=== PATIENT | male | born 1985 | race Two or more races ===

== ENCOUNTER 2019-04-20 06:10 | Inpatient (IN) | payer OTHER ==
[2019-04-16 10:31] VITALS: BMI 38.2
[2019-04-20] MEDS ORDERED: MIDAZOLAM HCL 2 MG/2 ML SINGLE DOSE VIAL ONE ×2 (07:18→07:27)
[2019-04-20] MEDS ORDERED: DEXAMETHASONE SOD PHOSPHATE/PF 10 MG/ML SDV ONE (07:18)
[2019-04-20] MEDS ORDERED: BUPIVACAINE HCL/PF 0.5% (5 MG/ML) 30 ML VIAL IJ ONE (07:19)
[2019-04-20] MEDS ORDERED: SUCCINYLCHOLINE CHLORIDE 200 MG/10 ML SYRINGE ONE (07:25)
[2019-04-20] MEDS ORDERED: fentaNYL CITRATE 250 MCG/5 ML VIAL ONE (07:25)
[2019-04-20] MEDS ORDERED: ROCURONIUM BROMIDE 50 MG/5 ML SYRINGE ONE (07:25)
[2019-04-20] MEDS ORDERED: PROPOFOL 20 ML ONE ×2 (07:25)
--- NOTE | 2019-04-20 07:29 | HP ---
Admitting History and Physical - Admission Chief Complaint: Morbid obesity History Source: Patient Limitations to Obtaining History: No Limitations - Past Medical History Pulmonary: Yes: Sleep Apnea - Past Surgical History Past Surgical History: Yes: Appendectomy Additional Past Surgical History: Circumcision Left thigh mass removal - Smoking History Smoking history: Never smoked Have you smoked in the past 12 months: No - Alcohol/Substance Use Hx Alcohol Use: No - Social History ADL: Independent Home Medications - Allergies Allergies/Adverse Reactions: Allergies Allergy/AdvReac Type Severity Reaction Status Date / Time No Known Allergies Allergy Verified 04/16/19 10:15 - Home Medications Home Medications: Ambulatory Orders Docusate Sodium [Colace -] 100 mg PO TID #90 capsule 04/20/19 Famotidine [Pepcid] 20 mg PO BID #60 tablet 04/20/19 Ondansetron [Zofran -] 8 mg PO TID #30 tablet 04/20/19 Oxycodone HCl/Acetaminophen [Percocet 5-325 mg Tablet] 1 - 2 tab PO Q6H #28 tab MDD 4 04/20/19 Family Medical History Family History: Unremarkable Review of Systems - Review of Systems Constitutional: denies: Chills, Fever Neck: reports: No Symptoms Cardiovascular: reports: No Symptoms Respiratory: reports: No Symptoms Gastrointestinal: reports: No Symptoms Neurological: reports: No Symptoms Pain Intensity: 0 Physical Examination Vital Signs: Vital Signs Temperature 97.6 F 04/20/19 06:21 Pulse Rate 80 04/20/19 06:21 Respiratory Rate 18 04/20/19 06:21 Blood Pressure 132/80 04/20/19 06:21 O2 Sat by Pulse Oximetry (%) Constitutional: Yes: Calm Neck: Yes: WNL Cardiovascular: Yes: WNL Respiratory: Yes: Regular Gastrointestinal: Yes: Soft, Abdomen, Obese Neurological: Yes: Alert, Oriented Problem List - Problems (1) Morbid obesity due to excess calories Problems reviewed: Yes Code(s): E66.01 - MORBID (SEVERE) OBESITY DUE TO EXCESS CALORIES (2) Sleep apnea Problems reviewed: Yes Code(s): G47.30 - SLEEP APNEA, UNSPECIFIED Qualifiers: Sleep apnea type: unspecified type Qualified Code(s): G47.30 - Sleep apnea , unspecified (3) BMI 38.0-38.9,adult Problems reviewed: Yes Code(s): Z68.38 - BODY MASS INDEX (BMI) 38.0-38.9, ADULT Assessment/Plan Laparoscopic possible open vertical sleeve gastrectomy possible liver biopsy, upper endoscopy
[2019-04-20] MEDS ORDERED: BUPIVACAINE HCL 0.25% 125 MG/50 ML VIAL ONE (07:38)
[2019-04-20] MEDS ORDERED: NEOSTIGMINE METHYLSULFATE 0.5 MG/ML - 10 ML MDV ONE (09:07)
[2019-04-20] MEDS ORDERED: BUPIVACAINE HCL/PF 0.25% (2.5MG/ML) 10 ML VIAL IJ ONE (09:09)
[2019-04-20] MEDS ORDERED: SODIUM CHLORIDE 1,000 ML IV SCH (09:15)
[2019-04-20] MEDS ORDERED: HYDROmorphone HCl 2 MG/ML VIAL IVPB PRN (09:15)
--- NOTE | 2019-04-20 09:17 | OP ---
Operative Note - Note: Operative Date: 04/20/19 Pre-Operative Diagnosis: Morbid obesity. Obstructive sleep apnea. BMi 38 Operation: Diagnositc laparoscopy. Laparoscopic vertical sleeve gastrectomy. Laparoscopic wedge liver biopsy Post-Operative Diagnosis: Same as Pre-op (as well as hepatomegaly) Surgeon: Jase Sheppard Md Do Resident Urgent Care: Dada Ruff Anesthesia: General Specimens Removed: Greater curvature of stomach. Liver biopsy Estimated Blood Loss (mls): 30 Drains & Tubes with Location: 36 fr bougie Operative Report Dictated: Yes
[2019-04-20] MEDS ORDERED: FAMOTIDINE 20 MG PREMIXED IVPB IVPB ONE (09:30)
[2019-04-20] MEDS: ACETAMINOPHEN 1000 MG/100 ML VIAL (NON FORMULARY) IVPB SCH ×3 (09:45→20:53)
[2019-04-20 09:49] LABS: HEMATOCRIT 40.8 % (35.4-49); HEMOGLOBIN 13.8 GM/dl (11.7-16.9); MCH 29.8 pg (25.7-33.7); MCHC 33.8 g/dl (32.0-35.9); MEAN CELL VOLUME 88.4 fl (80-96); MEAN PLT VOLUME 8.6 fl (7.5-11.1); PLATELET COUNT 239 K/MM3 (134-434); RBC 4.62 M/mm3 (4.00-5.60); RDW 11.8 % (11.9-15.9); WHITE BLOOD COUNT 4.4 K/mm3 (4.0-10.8)
[2019-04-20] MEDS: METOCLOPRAMIDE HCL INJECTION 10 MG/2 ML VIAL IVPUSH SCH ×4 (09:50→20:53)
[2019-04-20] MEDS: ONDANSETRON 4 MG/2 ML VIAL IVPUSH SCH ×4 (10:00→20:53)
[2019-04-20 10:04] LABS: ALBUMIN 3.6 g/dl (3.4-5.0); BILIRUBIN,TOTAL 1.3 mg/dl (0.2-1); CALCIUM 8.3 mg/dl (8.5-10); CREATININE 0.9 mg/dl (0.55-1.3); POTASSIUM 3.9 mmol/L (3.5-5.1); TOT PROT 6.7 g/dl (6.4-8.2)
[2019-04-20] MEDS ORDERED: LACTATED RINGERS SOLUTION 1,000 ML IV SCH (12:15)
[2019-04-20] MEDS ORDERED: POTASSIUM CHLORIDE TABS 20 MEQ TABLET.ER (FP) PO ONE (15:15)
[2019-04-20] MEDS ORDERED: KCL 10 MEQ IVPB 10 MEQ/100 ML INFUS.BAG IVPB SCH (15:15)
--- NOTE | 2019-04-20 15:52 | SPEC ---
DATE OF OPERATION: 04/20/2019 SURGEON: Chace Sheppard MD PULP MACHINE OPERATOR: Dada Ruff MD PLACE OF SERVICE: [facility], [address] [place] [address] PREOPERATIVE DIAGNOSES: 1. Morbid obesity. 2. Body mass index of 38. 3. Obstructive sleep apnea. POSTOPERATIVE DIAGNOSES: 1. Morbid obesity. 2. Body mass index of 38. 3. Obstructive sleep apnea. 4. Hepatomegaly. PROCEDURES: 1. Diagnostic laparoscopy. 2. Laparoscopic vertical sleeve gastrectomy. 3. Laparoscopic wedge liver biopsy. SPECIMENS: 1. Greater curvature of the stomach. 2. Wedge liver biopsy. ESTIMATED BLOOD LOSS: 30 mL. DRAIN: None. ANESTHESIA: GET. BOUGIE SIZE: 36-[place]. REASON FOR PROCEDURE: This is a 33-year-old gentleman who presents for weight loss options. After describing different options, he decided to proceed with laparoscopic, possible open, vertical sleeve gastrectomy, possible liver biopsy, upper endoscopy. The patient was seen by the respective subspecialties and cleared for surgery. The risks and benefits of the procedure were explained. These included bleeding, infection, hernia, IN, DVT, PE, injury to surrounding structures including the liver, colon, bowel, spleen, esophagus, vessel injury, nerve injury, weight regain, gastric leak, staple line leak, sleeve leak, obstruction, vitamin deficiency, hair loss and as some of the possible complications. The patient understood and signed informed consent. DESCRIPTION OF PROCEDURE: The patient was placed supine on the operating room table. The patient underwent general endotracheal intubation. The arms were brought out at 90 degrees and secured. A footboard was placed and the legs were secured laterally with padding. The abdomen was prepped and draped in the usual sterile fashion. A timeout was performed. An incision was made in the left upper quadrant and a Veress needle inserted. Pneumoperitoneum was established. Subsequently, the Veress needle was removed and a 5-mm trocar was placed under direct visualization with the laparoscope. The laparoscopic camera was then inserted and inspection of the abdominal cavity was performed. An incision was then made in the supraumbilical area and a 15-mm trocar was placed under direct visualization. A 5-mm trocar was then placed in the right upper quadrant and a 5-mm trocar was placed below the left subcostal margin. A stab wound was made in the subxiphoid area and a Kiki clamp inserted and removed to dilate the tract. A Deborah liver retractor was inserted. The post was secured at the bedside by the nursing staff. The patient was placed in steep reverse Trendelenburg position and the Deborah liver retractor was used to secure the liver towards the anterior abdominal wall. The pylorus was identified and 6 cm proximal to it, the lesser sac was entered using the LigaSure device. All lateral attachments to the greater curvature of the stomach, including the short gastric vessels, were ligated using the LigaSure device toward the gastrosplenic and gastrophrenic ligaments. Once this was done in its entirety, it was confirmed that all tubes within the nasal or oropharyngeal cavity, including a temperature probe were removed by Anesthesia. The bougie was then inserted by Anesthesia. Transection of the stomach was then begun staying adjacent to the bougie but away from the angularis. Transection of the stomach was performed near the portion of the stomach where the lesser sac was entered. Two laparoscopic Endo-RODDY black chente were used at this location. Laparoscopic Endo RODDY purple staple loads were then used for the remainder of the transection until the greater curvature of the stomach was fully transected. This was done staying close to the bougie. Care was taken to stay away from the angle of His cephalad. The staple line was then inspected. Hemostasis was identified. A leak test was then performed. It was clamped distally to the staple line. Irrigation solution was placed in the left upper quadrant and air was insufflated by Anesthesia into the sleeve. No leaks were identified. No obstruction was identified. This was done through the entirety of the staple line. The stomach was suctioned and the bougie removed fully intact under direct visualization. At this point, the irrigation solution was suctioned and again, hemostasis was noted. A wedge liver biopsy was then performed. The left lobe of the liver was identified. A portion of the edge of the left lobe of the liver was grasped. Using electrocautery, a wedge of the left liver was excised. The specimen was removed and sent off the field. Hemostasis of the wedge liver biopsy site was attained and noted using electrocautery. The 15-mm supraumbilical trocar was then removed and the greater curvature specimen removed from the site using a sponge stick polo. A Kevin-Yg device was then used to close the fascia with a 0 Vicryl suture at the site. Again, hemostasis was noted. The Deborah liver retractor was then removed under direct visualization. Pneumoperitoneum was desufflated. Hemostasis was noted at all incision sites and Marcaine was injected at all incision sites. A 3-0 Vicryl suture was used to close the deep subcutaneous tissue at the 15-mm incision site. All incision sites were closed using 4-0 Biosyn. Sterile dressings were applied. The patient tolerated the procedure well and was transferred to the recovery room in stable condition. CHACE SHEPPARD M.D. [id number]
[2019-04-20] MEDS: FAMOTIDINE 20 MG/50 ML IVPB 20 MG/50 ML MG IVPB SCH ×2 (16:40→21:02)
[2019-04-20 19:33] LABS: MAGNESIUM 1.6 mg/dL (1.8-2.4)
[2019-04-20] MEDS: ENOXAPARIN NA (PORCINE) 40 MG/0.4 ML DISP.SYRIN SQ SCH (21:02)
[2019-04-21] MEDS: ONDANSETRON 4 MG/2 ML VIAL IVPUSH SCH ×3 (00:55→09:36)
[2019-04-21] MEDS: METOCLOPRAMIDE HCL INJECTION 10 MG/2 ML VIAL IVPUSH SCH ×2 (02:30→09:38)
[2019-04-21] MEDS: ACETAMINOPHEN 1000 MG/100 ML VIAL (NON FORMULARY) IVPB SCH (02:30)
[2019-04-21 06:31] VITALS: BP 131/60; PULSE 61; TEMP 98
[2019-04-21 07:08] LABS: HEMATOCRIT 39.6 % (35.4-49); HEMOGLOBIN 13.3 GM/dl (11.7-16.9); MCH 29.7 pg (25.7-33.7); MCHC 33.7 g/dl (32.0-35.9); MEAN CELL VOLUME 88.2 fl (80-96); MEAN PLT VOLUME 8.1 fl (7.5-11.1); PLATELET COUNT 279 K/MM3 (134-434); RBC 4.49 M/mm3 (4.00-5.60); WHITE BLOOD COUNT 7.4 K/mm3 (4.0-10.8)
[2019-04-21 07:21] LABS: ALBUMIN 3.3 g/dl (3.4-5.0); BILIRUBIN,TOTAL 1.7 mg/dl (0.2-1); CALCIUM 8.5 mg/dl (8.5-10); CREATININE 0.8 mg/dl (0.55-1.3); POTASSIUM 3.9 mmol/L (3.5-5.1); TOT PROT 6.3 g/dl (6.4-8.2)
--- NOTE | 2019-04-21 07:43 | DS ---
Physical Exam: SUBJECTIVE: Patient seen and examined OBJECTIVE: Vital Signs Temperature 98.0 F 04/21/19 06:00 Pulse Rate 61 04/21/19 06:00 Respiratory Rate 19 04/21/19 06:00 Blood Pressure 131/60 04/21/19 06:00 O2 Sat by Pulse Oximetry (%) 100 04/21/19 06:29 PHYSICAL EXAM GENERAL: The patient is awake, alert, and fully oriented, in no acute distress. HEAD: Normal with no signs of trauma. EYES: PERRL, extraocular movements intact, sclera anicteric, conjunctiva clear. NECK: Trachea midline LUNGS: Breath sounds equal, clear to auscultation bilaterally, no wheezes, no crackles, no accessory muscle use. HEART: Regular rate and rhythm ABDOMEN: Soft, nontender, nondistended, no guarding, no rebound, no hepatosplenomegaly, no masses. EXTREMITIES: warm, well-perfused, no edema. NEUROLOGICAL: Cranial nerves II through XII grossly intact. Normal speech, gait not observed. PSYCH: Normal mood, normal affect. SKIN: Warm, dry, normal turgor, no rashes or lesions noted. LABS CBC,CMP WBC 7.4 K/mm3 (4.0-10.8) 04/21/19 07:00 RBC 4.49 M/mm3 (4.00-5.60) 04/21/19 07:00 Hgb 13.3 GM/dl (11.7-16.9) 04/21/19 07:00 Hct 39.6 % (35.4-49) 04/21/19 07:00 MCV 88.2 fl (80-96) 04/21/19 07:00 MCH 29.7 pg (25.7-33.7) 04/21/19 07:00 MCHC 33.7 g/dl (32.0-35.9) 04/21/19 07:00 RDW 12.0 % (11.9-15.9) 04/21/19 07:00 Plt Count 279 K/MM3 (134-434) 04/21/19 07:00 MPV 8.1 fl (7.5-11.1) 04/21/19 07:00 Sodium 135 mmol/L (136-145) L 04/21/19 07:00 Potassium 3.9 mmol/L (3.5-5.1) 04/21/19 07:00 Chloride 106 mmol/L (98-107) 04/21/19 07:00 Carbon Dioxide 23 mmol/L (21-32) 04/21/19 07:00 Anion Gap 6 MMOL/L (8-16) L 04/21/19 07:00 BUN 12.0 mg/dl (7-18) 04/21/19 07:00 Creatinine 0.8 mg/dl (0.55-1.3) 04/21/19 07:00 Est GFR (CKD-EPI)AfAm 136.99 04/21/19 07:00 Est GFR (CKD-EPI)NonAf 118.20 04/21/19 07:00 Random Glucose 239 mg/dl (74-106) H 04/21/19 07:00 Calcium 8.5 mg/dl (8.5-10) 04/21/19 07:00 Magnesium 1.6 mg/dL (1.8-2.4) L 04/20/19 09:30 Total Bilirubin 1.7 mg/dl (0.2-1) H 04/21/19 07:00 AST 131 U/L (15-37) H 04/21/19 07:00 ALT 244 U/L (13-61) H 04/21/19 07:00 Alkaline Phosphatase 70 U/L (45-117) D 04/21/19 07:00 Total Protein 6.3 g/dl (6.4-8.2) L 04/21/19 07:00 Albumin 3.3 g/dl (3.4-5.0) L 04/21/19 07:00 HOSPITAL COURSE: Date of Admission:04/20/19 Date of Discharge: 04/21/19 HOSPITAL COURSE: The patient was admitted to the Med-Surg Unit after elective bariatric surgery. Now, s/p laparoscopic vertical sleeve gastrectomy. The day of surgery, the patient ambulated the hallways with assistance. The patient was monitored with remote tele/continuous pulse ox. Narcotic and non-narcotic pain management control was achieved with oral and IV pain control. Upper GI series was obtained the following morning and no leak, extravastion or gastric outlet obstruction. Started on a Bariatric Stage 1 diet and tolerated well. Sabina-operative IV ABX were administered in addition to GI prophylaxis. DVT prophylaxis was achieved with SCDs and early ambulation. The discharge instructions and an oral pain management plan were reviewed with the patient. All questions answered. Above plan discussed with Dr. Sheppard and agreed. Minutes to complete discharge: 20
--- NOTE | 2019-04-21 09:09 | PN ---
Progress Note (short form) - Note Progress Note: Anesthesia Post op Pt seen and examined S:alert and awake O; Vital Signs Temperature 98.0 F 04/21/19 06:00 Pulse Rate 61 04/21/19 06:00 Respiratory Rate 19 04/21/19 07:40 Blood Pressure 131/60 04/21/19 06:00 O2 Sat by Pulse Oximetry (%) 100 04/21/19 07:40 CBC, BMP 04/21/19 07:00 04/21/19 07:00 a/P: Current Active Problems BMI 38.0-38.9,adult (Acute) Hepatomegaly (Acute) Morbid obesity due to excess calories (Acute) Sleep apnea (Acute) s/p gastric sleeve Doing well post op Continue current care Kannan Pineda MD
[2019-04-21] MEDS: ENOXAPARIN NA (PORCINE) 40 MG/0.4 ML DISP.SYRIN SQ SCH (09:36)
[2019-04-21] MEDS: FAMOTIDINE 20 MG/50 ML IVPB 20 MG/50 ML MG IVPB SCH (09:37)
[2019-04-21] MEDS ORDERED: oxyCODONE HCL 5 MG TABLET PO PRN (10:13)
[2019-04-21] MEDS ORDERED: SODIUM CHLORIDE 1,000 ML IV SCH (10:15)
--- NOTE | 2019-04-21 12:12 | EKG ---
Test Reason : Blood Pressure : / mmHG Vent. Rate : 067 BPM Atrial Rate : 067 BPM P-R Int : 164 ms QRS Dur : 084 ms QT Int : 406 ms P-R-T Axes : 036 086 007 degrees QTc Int : 429 ms SINUS RHYTHM WITH MARKED SINUS ARRHYTHMIA OTHERWISE NORMAL ECG WHEN COMPARED WITH ECG OF 09-APR-2019 12:02, NO SIGNIFICANT CHANGE WAS FOUND Confirmed by Jase Adhikari MD ([id number]) on 04/21/2019 12:11:42 PM Referred By: Jase Sheppard Confirmed By:Jase Adhikari MD
--- NOTE | 2019-04-21 14:39 | ECHO ---
Name: AYAN BLAND Exam:Adult Echocardiogram Study Date: 04/21/2019 01:58 PM Age: 33 yrs Reason For Study: Abnormal ECG Height: 70 in Weight: 276 lb BSA: 2.4 m2 MMode/2D Measurements & Calculations IVSd: 0.99 cm Ao root diam: 3.5 cm LVIDd: 4.7 cm LA dimension: 3.6 cm LVIDs: 3.1 cm LVPWd: 0.91 cm EDV(Teich): 103.1 ml LVOT diam: 2.0 cm ESV(Teich): 38.0 ml Doppler Measurements & Calculations MV E max wayne: 117.2 cm/sec MV A max wayne: 69.6 cm/sec MV dec slope: 517.3 cm/sec2 MV E/A: 1.7 Ao V2 max: 151.8 cm/sec LV V1 max P.1 mmHg Ao max P.2 mmHg LV V1 max: 123.6 cm/sec ARIELLE(V,D): 2.6 cm2 TR max wayne: 187.1 cm/sec PA V2 max: 108.6 cm/sec TR max P.4 mmHg PA max P.7 mmHg PI end-d wayne: 95.5 cm/sec Procedure A two-dimensional transthoracic echocardiogram with color flow and Doppler was performed. The patient was in normal sinus rhythm during the exam. Left Ventricle The left ventricular size, thickness and function are normal. Ejection Fraction = 60%. Left Ventricul ar Filling pattern is normal for age. Right Ventricle The right ventricle is not well visualized. Atria Normal left and right atrial size and function. Mitral Valve The mitral valve is grossly normal. Tricuspid Valve The tricuspid valve is not well visualized, but is grossly normal. There is trace tricuspid regurgita tion. Right ventricular systolic pressure is normal. Aortic Valve The aortic valve is normal in structure and function. No hemodynamically significant valvular aortic stenosis. Pulmonic Valve The pulmonic valve is not well visualized. Great Vessels The aortic root is normal size. Interpretation Summary The left ventricular size, thickness and function are normal The right ventricle is not well visualized. Normal left and right atrial size and function. There is trace tricuspid regurgitation. Right ventricular systolic pressure is normal. No hemodynamically significant valvular aortic stenosis. MD Wes Sanford 04/21/2019 02:38 PM
--- NOTE | 2019-04-21 15:39 | CON.CARD ---
Consult Consult Specialty:: Cardiology Referred by:: Dr. Sheppard Reason for Consultation:: VPCs on telemetry - History of Present Illness Chief Complaint: VPCs on telemetry History of Present Illness: 33M obesity, KAYLA s/p gastric sleeve and liver biopsy yesterday. Noted to have single VPCs on tele ROS: No CP, SOB, dizziness, palps. No h/o syncope. No PND, orthopnea. No edema. No lightheadness + KAYLA, does not use CPAP (per his report) Echo done: Normal biV function. No sig valve dz ECG: NSR 67, normal QT - History Source History Provided By: Patient Limitations to Obtaining History: No Limitations - Past Medical History Pulmonary: Yes: Sleep Apnea. No: Asthma, Bronchitis, Cancer, COPD, O2 Dependent , Pneumonia, Previously Intubated, Pulmonary Embolus, Pulmonary Fibrosis, Other Gastrointestinal: No: Ascites, Cancer, Constipation, Crohn's Disease, Diverticulitis, Diverticulosis, Esophageal Varices, Gastritis, GERD, GI Bleed, Hemorrhoids, Hiatal Hernia, Inflamatory Bowel Disease, Irritable Bowel Disease, Pancreatitis, Peptic Ulcer Disease, Ulcerative Colitis, Other Hepatobiliary: Yes: Other (elevated LFTS- had liver bx with bariatric procedure yest) Renal/: No: Renal Failure, Renal Inusuff, BPH, Cancer, Hematuria, Hemodialysis , Neurogenic Bladder, Renal Calculi, UTI, Other Heme/Onc: No: Anemia, B12 Deficiency, Bleeding Disorder, Cancer, Current Chemotherapy, Current Radiation Therapy, Hemochromatosis, Hypercoaguable State, Myeloproliferative Synd, Sickle Cell Disease, Sickle Cell Trait, Thrombocytopenia, Other Infectious Disease: No: AIDS, C-Diff, Herpes Zoster, HIV, MRSA, STD's, Tuberculosis, VREF, Other Psych: No: Addictions, Anxiety, Bipolar, Depression, Panic, Psychosis, Schizophrenia, Other Musculoskeletal: No: Bursitis, Chronic low back pain, Hemiparesis, Hemiplegia, Osteoarthritis, Paraplegia, Other Rheumatology: No: Fibromyalgia, Gout, Lupus, Rheumatoid Arthritis, Sarcoidosis, Vasculitis, Other ENT: No: Allergic Rhinitis, Sinusitis, Other Endocrine: No: Torres's Disease, [place]'s Disease, Diabetes Insipidus, Diabetes Mellitus, Hyperparathyroidism, Hyperthyroidism, Hypothyroidism, Osteopenia, SIADH, Other Dermatology: No: Basal Cell, Cellulitis, Eczema, Melanoma, Psoriasis, Squamous Cell, Other - Past Surgical History Past Surgical History: Yes: Appendectomy - Alcohol/Substance Use Hx Alcohol Use: No - Smoking History Smoking history: Never smoked Have you smoked in the past 12 months: No - Social History ADL: Independent History of Recent Travel: No Home Medications - Allergies Allergies/Adverse Reactions: Allergies Allergy/AdvReac Type Severity Reaction Status Date / Time No Known Allergies Allergy Verified 04/16/19 10:15 - Home Medications Home Medications: Ambulatory Orders Docusate Sodium [Colace -] 100 mg PO TID #90 capsule 04/20/19 Famotidine [Pepcid] 20 mg PO BID #60 tablet 04/20/19 Ondansetron [Zofran -] 8 mg PO TID #30 tablet 04/20/19 Oxycodone HCl/Acetaminophen [Percocet 5-325 mg Tablet] 1 - 2 tab PO Q6H #28 tab MDD 4 04/20/19 Family Medical History Family History: Unremarkable (no early CAD or SCD) Review of Systems Findings/Remarks: see HPI - Review of Systems Constitutional: reports: No Symptoms Eyes: reports: No Symptoms HENT: reports: No Symptoms Neck: reports: No Symptoms Cardiovascular: reports: No Symptoms Respiratory: reports: No Symptoms Gastrointestinal: reports: No Symptoms Genitourinary: reports: No Symptoms Breasts: reports: No Symptoms Reported Musculoskeletal: reports: No Symptoms Integumentary: reports: No Symptoms Neurological: reports: No Symptoms Endocrine: reports: No Symptoms Hematology/Lymphatic: reports: No Symptoms Psychiatric: reports: No Symptoms Vital Signs: Vital Signs Temperature 98.0 F 04/21/19 06:00 Pulse Rate 61 04/21/19 06:00 Respiratory Rate 19 04/21/19 07:40 Blood Pressure 131/60 04/21/19 06:00 O2 Sat by Pulse Oximetry (%) 100 04/21/19 07:40 Constitutional: Yes: No Distress, Calm Eyes: Yes: Conjunctiva Clear, EOM Intact HENT: Yes: Atraumatic, Normocephalic Neck: Yes: Trachea Midline Respiratory: Yes: CTA Bilaterally Gastrointestinal: Yes: Soft, Abdomen, Obese (Nontender) Cardiovascular: Yes: Regular Rate and Rhythm JVD: No Carotid Bruit: No PMI: Non-Displaced Heart Sounds: Yes: S1, S2 (rrr, no M/R/G) Edema: No Peripheral Pulses WNL: Yes Neurological: Yes: Alert, Oriented ...Motor Strength: WNL - Other Data Labs, Other Data: CBC, BMP 04/21/19 07:00 04/21/19 07:00 Laboratory Tests 04/20/19 04/20/19 04/21/19 07:20 09:30 07:00 WBC 7.4 Hgb 13.3 Plt Count 279 Sodium Potassium Creatinine Random Glucose Magnesium 1.6 L AST ALT Alkaline Phosphatase Total Protein Albumin HIV 1&2 Antibody Screen Negative HIV P24 Antigen Negative 04/21/19 07:00 WBC Hgb Plt Count Sodium 135 L Potassium 3.9 Creatinine 0.8 Random Glucose 239 H Magnesium AST 131 H ALT 244 H Alkaline Phosphatase 70 D Total Protein 6.3 L Albumin 3.3 L HIV 1&2 Antibody Screen HIV P24 Antigen NSR 67bpm; sinus arrhythmia. QTc 429ms Echo: Report Reviewed Ejection Fraction %: LVEF > or = 40 % Imaging - Results EKG: Image Reviewed Assessment/Plan IMP: S/p bariatric surgery, liver bx, tolerated well Obstructive sleep apnea Sinus cyril- during sleep hours, likely due to increased vagal tone Isolated single VPCs, normal EF REC: 1. No further cardiac work up planned. LVEF normal, asx VPCS 2. Replete K and Mg to targets of 4 and 2 respectively 3. CPAP compliance. 4. Outpatient f/u recommended to assure compliance w/ CPAP and for consideration of f/u holter. Thank you.
--- NOTE | 2019-04-28 10:50 | PATH ---
Surgical Pathology Report Patient Name: AYAN BLAND Med. Rec. #: [id number] /Age/Gender: 1985 (Age: 33) / M Account: [id number] Location: [facility] Taken: 04/20/2019 Received: 04/20/2019 Reported: 04/28/2019 Physicians: Jase Sheppard M.D. Specimen(s) Received A: GREATER CURVATURE STOMACH B: LIVER BIOPSY Clinical History Morbid obesity Final Diagnosis A. greater curvature, stomach, laparoscopic gastric sleeve excision: Portion of stomach showing mild chronic mucosal inflammation. Immunostain is negative for H. pylori organisms. B. liver, wedge biopsy: MARKEDLY CAUTERIZED SUBCAPSULAR HEPATIC PARENCHYMA WITH MODERATE TO SEVERE STEATOHEPATITIS WITH DIFFUSE STEATOSIS (80-90%), PERICELLULAR INFLAMMATION, AND BALLOONING DEGENERATION OF HEPATOCYTES. (SEE COMMENT) TRICHROME STAIN HIGHLIGHTS THE CAPSULE AND SHOWS EXTENSIVE PERICELLULAR FIBROSIS WITH FIBROUS SEPTA AND BRIDGING FIBROSIS. iRON STAIN IS NEGATIVE FOR SIDEROSIS. nEGATIVE FOR CHRONIC HEPATITIS, CHOLESTASIS, CHOLANGITIS/BILE DUCT INJURY, GRANULOMAS, OR MALIGNANCY. Comment: The biopsy is of subcapsular parenchyma only and is markedly cauterized. The total LEXIE score is 7/8 (steatosis: 3/3, lobular inflammation: 2/3, hepatocyte balloonin/2). The LEXIE fibrosis stage is 3/4. Note: The liver biopsy was sent to Dr. Shruthi Watt (with expertise in GI/hepatobiliary pathology) from [place], [place] and the above diagnosis reflects her opinon. Electronically Signed Consuelo Kerns M.D. Addendum Reported: 04/29/2019 Addendum Diagnosis Case discussed with Dr. Sheppard on 04/28/19. Consuelo Kerns M.D. Gross Description A. Received in formalin, labeled "greater curvature of stomach," is a 112 gram, 18.0 x 3.5 x 3.0 cm. portion of stomach with a stapled margin of resection. The serosa is shipley-sung with minimal attached fat. The mucosa is shipley-red with normal folds. No mucosal masses are identified. Rcp sections are submitted in one cassette. B. Received in formalin labeled "liver biopsy," is a 2.0 x 1.6 x 0.3 cm aggregate of shipley portions of soft tissue, consistent with liver tissue. The specimen is entirely submitted in one cassette. DL04/21/2019 saudi04/21/2019
== END 2019-04-21 16:09 | disposition home or self-care (01) | DRG 403 ==
LOC: FM/S 06:10
PROVIDERS: ADMIT Surgery; ATTEND Surgery
PROC: 0DB64Z3 Excision of Stomach, Percutaneous Endoscopic Approach, Vertical (ICD-10-PCS; principal; 2019-04-20 08:28)
PROC: 0FB24ZX Excision of Left Lobe Liver, Percutaneous Endoscopic Approach, Diagnostic (ICD-10-PCS; 2019-04-20 08:28)
DX: E66.01 Morbid (severe) obesity due to excess calories (principal); Z68.38 Body mass index [BMI] 38.0-38.9, adult; G47.33 Obstructive sleep apnea (adult) (pediatric); R16.0 Hepatomegaly, not elsewhere classified; I49.3 Ventricular premature depolarization; R00.1 Bradycardia, unspecified
CPT/HCPCS: 36415; 74241-TC-FY; 80053; 83735; 85027; 87389; 88305-TC; 93005; 93306-TC; 94760; J0131; J7030